=== PATIENT | female | born 1970 | race Caucasian/White ===

== ENCOUNTER → 2019-12-23 15:09 | Outpatient (CLI) | payer OTHER, SELFPAY ==
--- NOTE | ~2019-12-23 | MM_ITS ---
EXAMINATION: MM screening joe BI w polo HISTORY: Screening TECHNIQUE: Craniocaudal and mediolateral oblique 3-D tomosynthesis images were obtained and synthetic 2-D images were generated. CAD analysis was submitted and interpreted. COMPARISON: Comparison to multiple prior studies sequentially, with oldest reviewed study dated 04/25. BREAST PARENCHYMAL COMPOSITION: There are scattered areas of fibroglandular density. FINDINGS: The left breast is stable without evidence for malignancy. Slightly increased prominence of asymmetries in the upper outer quadrant of the right breast. IMPRESSION: 1. Right breast asymmetries, upper outer quadrant. 2. Additional mammographic views and possible breast ultrasound are recommended. BI-RADS Category 0: Incomplete: Needs additional imaging evaluation. Reviewed, dictated and finalized at location A. IMPRESSION: 1. Right breast asymmetries, upper outer quadrant. 2. Additional mammographic views and possible breast ultrasound are recommended . BI-RADS Category 0: Incomplete: Needs additional imaging evaluation.
== END ==
PROVIDERS: PCP Family Medicine; Visit Provider Family Medicine
DX: Z12.31 Encounter for screening mammogram for malignant neoplasm of breast (principal)
CPT/HCPCS: 77063; 77067

== ENCOUNTER → 2020-01-14 14:11 | Outpatient (CLI) | payer OTHER, SELFPAY ==
--- NOTE | ~2020-01-14 | MMUS_ITS ---
EXAMINATION: MM diagnostic mammo unilat RT, US breast RT limited HISTORY: Follow-up right breast asymmetry TECHNIQUE: Additional 3-D tomosynthesis images of the right breast were performed and synthetic 2-D i mages were generated. CAD analysis was submitted and interpreted. High resolution right breast ultras ound was performed. COMPARISON: Comparison to multiple prior studies sequentially, with oldest reviewed study dated 09/01. BREAST PARENCHYMAL COMPOSITION: Breast composed of scattered areas of fibroglandular density. FINDINGS: MAMMOGRAPHIC FINDINGS: There are irregular asymmetries in the upper outer quadrant of the right breast without discrete mass . There are no suspicious calcifications. ULTRASOUND: Limited right breast ultrasound: At 10:00, 6 cm from the nipple there is an irregular hypoechoic ill- defined mass with posterior shadowing and internal vascularity mass measures approximately 3 cm. IMPRESSION: 1. Complex irregular shaped 3 cm mass at 10:00, 6 cm from the nipple in the area of asymmetry on mamm ography. 2. Ultrasound-guided right breast biopsy recommended. BI-RADS category 4, suspicious findings. Reviewed, dictated and finalized at location A. UNITY SERVICES OFFICER IMPRESSION: 1. Complex irregular shaped 3 cm mass at 10:00, 6 cm from the nipple in the are a of asymmetry on mammography. 2. Ultrasound-guided right breast biopsy recommended. BI-RADS category 4, suspicious findings.
== END ==
PROVIDERS: PCP Family Medicine; Visit Provider Nurse Practitioner
DX: N63.11 Unspecified lump in the right breast, upper outer quadrant (principal)
CPT/HCPCS: 76642; 77065

== ENCOUNTER 2020-01-20 10:25 | Outpatient (CLI) | payer OTHER, SELFPAY ==
--- NOTE | ~2020-01-20 | US_ITS ---
EXAMINATION: US breast RT limited HISTORY: Patient presents for ultrasound guided biopsy of the right breast mass. TECHNIQUE: Limited ultrasound the upper outer quadrant of the right breast is performed: 01/14/2020 FINDINGS: With real-time ultrasound, no discrete mass is identified for targeted biopsy. This was dis cussed with the patient and a plan for six-month follow-up was decided upon. IMPRESSION: No discrete mass identified for targeted and ultrasound-guided biopsy. Would recommend follow-up diag nostic mammogram in six months with possible ultrasound to evaluate for the right breast asymmetries described on recent diagnostic mammogram. BI-RADS category 3, probably benign findings. Reviewed, dictated and finalized at location A. CHARD GRINDER OPERATOR IMPRESSION: No discrete mass identified for targeted and ultrasound-guided biopsy. Would re commend follow-up diagnostic mammogram in six months with possible ultrasound t o evaluate for the right breast asymmetries described on recent diagnostic mamm ogram. BI-RADS category 3, probably benign findings.
== END 2020-01-20 10:26 | disposition home or self-care (01) ==
LOC: ANHIMG 10:34
PROVIDERS: PCP Nurse Practitioner; Visit Provider Nurse Practitioner
DX: N63.11 Unspecified lump in the right breast, upper outer quadrant (principal)
CPT/HCPCS: 76642

== ENCOUNTER → 2020-11-18 01:21 | Outpatient (CLI) | payer OTHER, SELFPAY ==
[2020-11-18 20:24] LABS: SARS-CoV-2 RNA PCR Negative
== END ==
PROVIDERS: PCP Family Medicine; Visit Provider Family Medicine
DX: Z20.822 Contact with and (suspected) exposure to COVID-19 (principal); R05 Cough
CPT/HCPCS: C9803; U0003; U0005

== ENCOUNTER → 2021-01-28 02:27 | Outpatient (CLI) | payer OTHER, SELFPAY ==
[2021-01-28 18:39] LABS: SARS-CoV-2 RNA PCR Negative
== END ==
PROVIDERS: PCP Family Medicine; Visit Provider Nurse Practitioner
DX: Z20.822 Contact with and (suspected) exposure to COVID-19 (principal)
CPT/HCPCS: C9803; U0003; U0005

== ENCOUNTER → 2021-06-03 14:20 | Outpatient (CLI) | payer OTHER, SELFPAY ==
--- NOTE | ~2021-06-03 | MM_ITS ---
EXAMINATION: MM screening joe BI w polo HISTORY: Screening mammogram TECHNIQUE: Craniocaudal and mediolateral oblique 3-D tomosynthesis images were obtained and synthetic 2-D images were generated. CAD analysis was submitted and interpreted. COMPARISON: 01/20/2020 limited right breast ultrasound 01/14/2020 diagnostic right mammogram and limited right breast ultrasound limited right breast ultraso und 12/23/2019, 10/22/2018 bilateral screening mammogram examinations BREAST PARENCHYMAL COMPOSITION : There are scattered areas of fibroglandular density. FINDINGS: There is interval development of an approximately 3.3 x 4.2 x 4.6 cm mass with halo sign po steriorly in the lower inner quadrant of the left targeted left breast ultrasound examination are rec ommended. Biopsy marker is noted on the left; history of prior benign left breast biopsy. No suspicious mass, architectural distortion, malignant calcification, skin thickening or retraction is noted otherwise. IMPRESSION: 1. 4.6 cm circumscribed mass with halo sign, posterior lower inner left breast 2. Targeted left breast ultrasound examination is recommended BI-RADS Category 0: Incomplete: Needs additional imaging evaluation. Reviewed, dictated and finalized at location A.
== END ==
PROVIDERS: PCP Nurse Practitioner Family; Visit Provider Nurse Practitioner Family
DX: Z12.31 Encounter for screening mammogram for malignant neoplasm of breast (principal); R92.8 Other abnormal and inconclusive findings on diagnostic imaging of breast
CPT/HCPCS: 77063; 77067

== ENCOUNTER → 2021-06-15 14:20 | Outpatient (CLI) | payer OTHER, SELFPAY ==
--- NOTE | ~2021-06-15 | US_ITS ---
US breast LT limited 06/15/2021 14:39 Indication: Follow-up left breast mass seen on recent examination Procedure: High-resolution Limited ultrasound of the left breast Comparison: Mammogram dated 06/03/2021 Findings: At 9:00, 10 cm from the nipple there is a lobulated hypoechoic mass with posterior acoustic enhancement. There is internal vascularity. The mass measures 4.8 x 3.3 x 3.8 cm. Impression: 1: New hypoechoic lobulated vascular mass at 9:00, 10 cm from the nipple with internal vascularity me asuring 4.8 cm maximum dimension. BI-RADS CATEGORY 4-SUSPICIOUS ABNORMALITY RECOMMENDATION: Ultrasound guided left breast biopsy recommended. Reviewed, dictated and finalized at location A. Impression: 1: New hypoechoic lobulated vascular mass at 9:00, 10 cm from the nipple with i nternal vascularity measuring 4.8 cm maximum dimension. BI-RADS CATEGORY 4-SUSPICIOUS ABNORMALITY RECOMMENDATION: Ultrasound guided left breast biopsy recommended.
== END ==
PROVIDERS: PCP Nurse Practitioner Family; Visit Provider Nurse Practitioner
DX: R92.8 Other abnormal and inconclusive findings on diagnostic imaging of breast (principal)
CPT/HCPCS: 76642

== ENCOUNTER 2021-06-25 09:24 | Outpatient (CLI) | payer OTHER, SELFPAY ==
--- NOTE | ~2021-06-25 | MMUS_ITS ---
US breast biopsy LT w image, MM post biopsy invasive LT EXAMINATION: US GUIDED NEEDLE BIOPSY WITH VAC UUM ASSISTANCE DATE: 06/25/2021 10:47 CDT INDICATION: Left breast mass seen on recent examination. Ultrasound-guided core biopsy is requested to evaluate for malignancy. TECHNIQUE AND FINDINGS: The risks and potential benefits of the procedure were discussed with the patient, and written inform ed consent was obtained. After sterile preparation of the left breast, 1% lidocaine was utilized for local anesthesia. 1% lidocaine with epinephrine was used for deep anesthesia. A 10G vacuum-assisted biopsy gun needle was advanced through to the outer edge of the region of inter est from a medial approach utilizing sonographic guidance. A total of 6 tissue core samples were obt ained through the lesion. An Inrad tissue marker clip was then placed at the biopsy site. Hemostasis was achieved. The patient tolerated procedure well and there was no evidence of immediate complication. The patien t was given verbal instructions partly is from the department. Left breast mammograms to document ti ssue marker clip placement. The tissue samples were submitted to surgical pathology for histologic an alysis. IMPRESSION: 1. Successful ultrasound-guided vacuum-assisted biopsy of left breast mass with tissue marker placem ent. Please refer to pathology report for histologic analysis. Reviewed, dictated and finalized at location A. IMPRESSION: 1. Successful ultrasound-guided vacuum-assisted biopsy of left breast mass wit h tissue marker placement. Please refer to pathology report for histologic anal ysis.
== END 2021-06-25 09:25 | disposition home or self-care (01) ==
PROVIDERS: PCP Nurse Practitioner Family; Visit Provider Nurse Practitioner
DX: R92.8 Other abnormal and inconclusive findings on diagnostic imaging of breast (principal); C50.912 Malignant neoplasm of unspecified site of left female breast
CPT/HCPCS: 19083; 88305; 88342; 88360; A4648

== ENCOUNTER 2022-08-29 13:42 | Outpatient (CLI) | payer OTHER, SELFPAY ==
[2022-08-29 14:58] LABS: Strep Group A RT-PCR NOT DETECTED (Negative)
== END 2022-08-29 13:43 | disposition home or self-care (01) ==
LOC: ANHLAB 13:44
PROVIDERS: PCP Nurse Practitioner Family; Visit Provider Family Medicine
DX: J02.9 Acute pharyngitis, unspecified (principal)
CPT/HCPCS: 87651

== ENCOUNTER 2023-02-17 08:13 | Outpatient (CLI) | payer OTHER, SELFPAY ==
[2023-02-17 12:43] LABS: Basophils Percent Auto 0.4 % (0.2-1.2); Eosinophils Absolute Auto 0.2 K/mm3 (0-0.3); Eosinophils Percent Auto 2.9 % (0-4.4); Hematocrit 37.1 % (37.0-47.0); Hemoglobin 10.9 g/dL (12.0-15.0); Immature Granulocyte Absolute 0.01 K/mm3 (0.00-0.031); Immature Granulocyte Percent A 0.1 % (0-0.5); Lymphocytes Absolute Auto 1.95 K/mm3 (0.9-3.2); Lymphocytes Percent Auto 26.7 % (18.3-44.2); Mean Corpuscular HGB Conc 29.4 g/dl (32-36); Mean Corpuscular Hemoglobin 23.9 pg (26-34); Mean Corpuscular Volume 81.4 fl (80-100); Mean Platelet Volume 9.8 fl (7.4-10.4); Monocytes Absolute Auto 0.4 K/mm3 (0.1-0.6); Monocytes Percent Auto 5.6 % (2.6-8.5); Neutrophils Absolute Auto 4.7 K/mm3 (1.3-6.7); Neutrophils Percent Auto 64.3 % (45.5-73.1); Platelet Count Result 371 k/mm3 (150-375); Red Blood Count 4.56 M/mm3 (4.2-5.4); Red Cell Distribution Width 17.7 % (11.5-14.5); White Blood Count 7.3 K/mm3 (4.5-10.0)
[2023-02-17 12:55] LABS: Alanine Aminotransferase 39 U/L (6-35); Alkaline Phosphatase 85 U/L (38-126); Anion Gap 7 mmol/L (8-16); Aspartate Amino Transferase 50 U/L (14-36); Bilirubin,Total 0.7 mg/dL (0.2-1.3); Blood Urea Nitrogen 14 mg/dL (7-17); Calcium 8.9 mg/dL (8.4-10.2); Carbon Dioxide 30 mmol/L (22-30); Chloride 102 mmol/L (98-107); Cholesterol 138 mg/dL (0-200); Estimated Glomerular Filt Rate > 60; Glucose 75 mg/dL (65-110); HDL Direct 37 mg/dL; Sodium 139 mmol/L (137-145); Triglycerides 51 mg/dL (<150)
[2023-02-17 13:07] LABS: LDL Cholesterol Direct 78 mg/dL
[2023-02-17 13:34] LABS: Hemoglobin A1C 5.8 % (<5.7)
[2023-02-21 15:53] LABS: Vitamin D 1,25 (OH)2 Total 31 pg/mL (18-72); Vitamin D2 1,25 (OH)2 <8 pg/mL; Vitamin D3 1,25 (OH)2 31 pg/mL
== END 2023-02-17 08:14 | disposition home or self-care (01) ==
LOC: ANHGOSHLAB 08:14
PROVIDERS: PCP Family Medicine; Visit Provider Nurse Practitioner Family
DX: Z00.00 Encounter for general adult medical examination without abnormal findings (principal); I10 Essential (primary) hypertension; E55.9 Vitamin D deficiency, unspecified; E66.01 Morbid (severe) obesity due to excess calories; Z68.43 Body mass index [BMI] 50.0-59.9, adult
CPT/HCPCS: 36415; 80053; 80061; 82652; 83036; 84443; 85025

== ENCOUNTER 2024-02-28 08:00 | Outpatient (CLI) | payer OTHER, SELFPAY ==
[2024-02-28 19:23] LABS: Alanine Aminotransferase 23 U/L (6-35); Albumin Level 3.7 g/dL (3.5-5.1); Alkaline Phosphatase 98 U/L (38-126); Anion Gap 4 mmol/L (4-12); Aspartate Amino Transferase 45 U/L (14-36); Bilirubin,Total 1.6 mg/dL (0.2-1.3); Blood Urea Nitrogen 9 mg/dL (7-17); Calcium 8.8 mg/dL (8.4-10.2); Carbon Dioxide 33 mmol/L (22-30); Chloride 101 mmol/L (98-107); Cholesterol 159 mg/dL (0-200); Estimated Glomerular Filt Rate > 60; Glucose 87 mg/dL (65-110); HDL Direct 49 mg/dL; Potassium 3.5 mmol/L (3.4-5.0); Sodium 138 mmol/L (137-145); Triglycerides 84 mg/dL (<150)
[2024-02-28 19:33] LABS: Hemoglobin A1C 5.9 % (<5.7); LDL Cholesterol Direct 71 mg/dL
== END 2024-02-28 08:01 | disposition home or self-care (01) ==
LOC: ANHGOSHLAB 08:01
PROVIDERS: PCP Nurse Practitioner Family; Visit Provider Nurse Practitioner Family
DX: Z00.00 Encounter for general adult medical examination without abnormal findings (principal); R73.03 Prediabetes; I10 Essential (primary) hypertension; E55.9 Vitamin D deficiency, unspecified
CPT/HCPCS: 36415; 80053; 80061; 82306; 83036; 84443

== ENCOUNTER 2024-10-04 08:06 | Outpatient (CLI) | payer OTHER, SELFPAY ==
--- OUTSIDE RECORDS SUMMARY | 2024-10-04 08:09 | XMS_ITS | Clinical Summary ---
Author Organization [facility] Address [address] [place] [address] Care Team Providers Care Torch Cutter Name Role Phone Bisi Looney MD Unavailable [phone] Shona Justice MD Unavailable [phone] Janak Holland MD Unavailable [phone] Airam Boykin NP Primary Care Provider [phone] Anamika Pepe MD Unavailable [phone] Gregorio Kirk MD Unavailable Allergies Active Allergy Reactions Criticality Noted Date Comments Paclitaxel Shortness of breath,Anxiety,Other (See comments),Chest tightness,Flushing (skin),Nausea only High 08/20/2021 Back pain Start at half rate and titrate to full rate after 15 min if tolerated Medications lisinopriL (PRINIVIL,ZESTRIL ) 40 mg tabletIndications :hypertension Take 1 tablet (40 mg total) by mouth every morning Active amLODIPine (NORVASC) 5 mg tabletIndications :hypertension Take 1 tablet (5 mg total) by mouth nightly Active albuterol HFA (PROVENTIL HFA,VENTOLIN HFA,PROAIR HFA) 90 mcg/actuation inhalerIndication s:Acute Asthma Attack Inhale 2 puffs every 6 (six) hours as needed for wheezing or shortness of breath Active glucosamine sulfate 500 mg tabletIndications :supplement Take 1 tablet by mouth nightly Active multivitamin capsuleIndication s:Vitamin Deficiency Prevention Take 1 capsule by mouth nightly Active lidocaine-priloca ine (EMLA) creamIndications: Administration of Local Anesthesia Apply topically as needed for pain 30 g 2 2 Active loratadine (CLARITIN) 10 mg tablet Take 1 tablet (10 mg total) by mouth daily as needed for allergies Active acetaminophen (TYLENOL) 500 mg tablet Take 2 tablets (1,000 mg total) by mouth every 6 (six) hours as needed for pain Every 8 hrs Active bismuth subsalicylate (PEPTO-BISMOL) suspension Take 30 mL by mouth every 6 (six) hours as needed for indigestion or heartburn Active fluticasone propionate (FLONASE) 50 mcg/actuation nasal spray Administer 2 sprays into each nostril as needed for rhinitis Active oxyBUTYnin XL (DITROPAN-XL) 10 mg 24 hr tablet 3 Active ibuprofen 200 mg tab/cap Take by mouth every 6 (six) hours as needed for pain Active sodium, potassium & mag sulfates (SUPREP BOWEL KIT) 17.5-3.13-1.6 gram recon soln 4 Active Active Problems Problem Noted Date Diagnosed Date Malignant neoplasm of left female breast 023 Personal history of radiation therapy 08/16/2022 Persons encountering health services in other specified circumstances 08/10/2021 Malignant neoplasm of lower- inner quadrant of left breast in female, estrogen receptor negative 07/29/2021 Cancer Staging:Clinical:Stage IIIB(cT3, cN0, cM0, G3, ER-, GA-, HER2-) - Unsigned Immunizations Immunization Administration Dates Next Due Moderna SARS-CoV-2 Monovalen t Vaccination (12+ YRS) 08/07/2021,01/04/2021,05/30/2020,2020 Surgical History Surgery Date Site/Laterality Comments BREAST BIOPSY 06/11/2021 - 07/10/2021 Left IDC; with markers; ASD REPAIR 05/12/2007 - 06/11/2007 post stroke in 2007; umbrella surgery SECTION 03/13/2005 - 03/12/2006 BREAST BIOPSY 03/13/2016 - 03/12/2017 Right with marker placment BLADDER SURGERY 03/13/1974 - 03/12/1975 MASS EXCISION 03/13/1973 - 03/12/1974 in nose as ESOPHAGOGASTRODUODENOSCOPY 03/13/2007 - 03/12/2008 US GUIDED BIOPSY LYMPH NODE SUPERFICIAL LEFT 08/05/2021 N/A PORTACATH PLACEMENT 08/12/2021 Right BREAST LUMPECTOMY 03/28/2022 Left BREAST BIOPSY 10/13/2022 Left Medical History Medical History Date Comments Hypertension Stroke (HCC) Asthma Sleep apnea GERD (gastroesophageal reflux disease) BMI 40.0-44.9, adult (HCC) Anxiety Breast cancer (HCC) Family History Medical History Relation Name Comments Stomach cancer Maternal Grandfather Breast cancer Mother Prostate cancer Mother's Brother Breast cancer Mother's Sister 1 Brain cancer Mother's Sister 2 Anesthesia problems Other Colon cancer Paternal Grandfather Relation Name Status Comments Maternal Grandfather Mother Alive Mother's Brother Mother's Sister 1 Mother's Sister 2 Other Paternal Grandfather Social History Tobacco Use Types Packs/Day Years Used Date Smoking Tobacco: Never Smokeless Tobacco: Never Tobacco Cessation:Counseling Given: Not Answered AUDIT-C Answer Date Recorded Q1: How often do you have a drink containing alc ohol? Monthly or less 12/02/2022 Q2: How many drinks containi ng alcohol do you have on a typical day when you are drinking? 1 or 2 12/02/2022 Q3: How often do you have si x or more drinks on one occasion? Never 12/02/2022 Personal Safety Answer Date Recorded Have you ever been in or are you currently in a harmful physical or emotional relationship or is someone making you feel afraid or unsafe? Denies 12/12/2022 Comments No Sex and Gender Information Value Date Recorded Sex Assigned at Not on file Legal Sex Female 1:58 AM SUPERVISOR COFFEE Gender Identity Not on file Sexual Orientation Not on file Obstetrics History Last Filed Vital Signs Vital Sign Reading Time Taken Comments Blood Pressure 149/85 04/03/2024 9:38 AM SUPERVISOR COFFEE Pulse 88 04/03/2024 9:38 AM SUPERVISOR COFFEE Temperature 36.3 C (97.4 F) 03/17/2023 12:18 PM SUPERVISOR COFFEE Respiratory Rate 18 03/17/2023 12:18 PM SUPERVISOR COFFEE Oxygen Saturation 100% 04/03/2024 9:38 AM SUPERVISOR COFFEE Inhaled Oxygen Concentration - - Weight 155.6 kg (343 lb) 04/03/2024 9:38 AM SUPERVISOR COFFEE Height 180.3 cm (5' 10.98) 09/29/2023 9:42 AM C DT Body Mass Index 47.86 09/29/2023 9:42 AM CDT Plan of Treatment Health Maintenance Due Date Last Done Comments Cervical Cancer Screening 1970 Colon Cancer Screening-Colonoscopy 1970 Depression Screening 1970 Hepatitis C Screening 1970 DTaP/Tdap/Td Vaccine (1 - Tdap) 1981 Hepatitis B Screening 1988 Regular Well Visit/Exam 18-64 1988 Zoster Vaccine (1 of 2) 2020 Covid-19 Vaccine ( season) 2023 08/07/2021, 01/04/2021, 05/30/2020, Additional history exists Breast Cancer Screening-Mammogram 09/28/2024 09/29/2023, 09/23/2022 Influenza Vaccine (#1) 2024 , 02/10/2023, 03/01/2022, Additional history exists Pneumococcal vaccine <65 Aged Out No longer eligible based on patient's age to complete this topic Medical Devices Implanted Type Area Launch Check Out Device Identifier Shelf Expiration Date Model / Serial / Lot Other - See Comments Implanted:Qty: 1 Other - see comments N/A: Heart Description:ACD repair- ioana ent carries card with her- surgery 05/2007 [employer] Magseed 18ga 7cm Marker Breast Biopsy [id number] - [id number] Implanted:Qty: 1 on 03/28/2022 at [facility] Left: Breast [employer] [id number] 01/10/2026 [id number] [employer] Ligaclip Extra 3.2mm Ligate Open Medium Clip Internal Titanium Latex Free Lt200 - [id number] Implanted:Qty: 1 on 03/28/2022 by Shona Justice MD at [facility] [employer] [id number] 11/10/2026 [id number] / / [id number] [employer] Ligaclip Extra 3.2mm Ligate Open Medium Clip Internal Titanium Latex Free Lt200 - [id number] Implanted:Qty: 1 on 03/28/2022 by Shona Justice MD at [facility] [employer] [id number] 11/10/2026 [id number] / / [id number] [employer] Partnership Eviva 13cm Identifier Biopsy Site Wwrby-Vzytd-49 - [id number] Implanted:Qty: 1 on 10/13/2022 at [facility] [employer] [id number] 03/01/2023 [facility]-EV DANIEL-13 / / [id number] Explanted Type Area Launch Check Out Device Identifier Shelf Expiration Date Model / Serial / Lot [employer] Peripheral [employer] Powerport Clearvue Airguard 8fr 1 Lumen Lightweight Intermediate Latex Free [id number] - [id number] Implanted:Qty: 1 on 08/12/2021 by Shona Justice MD at [facility] Explanted:Qty: 1 on 12/12/2022 by Shona Justice MD at [facility] Right: Chest [employer] [id number] 06/10/2022 [id number] / / [id number] Description:Disposed of per hospital policy Procedures Procedure Name Priority Date/Time Associated Diagnosis Comments DIAGNOSTIC MAMMOGRAM BILATERAL W MAGDY Schedule Routine, Read Routine (OP Routine) 09/29/2023 10:28 AM CDT Malignant neoplasm of lower-inner quadrant of left breast in female, estrogen receptor negative (HCC) Invasive ductal carcinoma of breast, female, left (HCC) from Last 3 Months or Most Recently Relevant to Health Maintenance Results * Diagnostic Mammogram Bilateral W Magdy (09/29/2023 10:28 AM CDT) Anatomical Region Laterality Modality Breast Bilateral Mammography 09/29/2023 1:08 PM CDT Impressions 09/29/2023 1:08 PM CDT No mammographic evidence of malignancy. OVERALL FINAL ASSESSMENT: BI-RADS Category 2: Benign. RECOMMENDATION: Annual diagnostic mammography is recommended. Electronically signed by: Kristie Burgos M.D. Narrative 09/29/2023 1:08 PM CDT EXAMINATION: BILATERAL DIGITAL DIAGNOSTIC MAMMOGRAM INCLUDING CAD AND BILATERAL DIGITAL BREAST TOMOSYNTHESIS HISTORY: 53-year-old female with breast conservation therapy for LEFT breast invasive ductal cancer treated in 2021 with history of benign LEFT breast biopsy of calcification in 2022. COMPARISON: Multiple priors, most recently 10/13/2022 and dating back to 12/23/2019 TECHNIQUE: Full field digital mammographic views of BOTH breasts were performed, including computer aided detection (CAD) and BILATERAL digital breast tomosynthesis (DBT). BREAST PARENCHYMAL COMPOSITION: There are scattered areas of fibroglandular density. MAMMOGRAM FINDINGS: There is no new suspicious abnormality within EITHER breast; the appearance of BOTH breasts is stable compared to prior exams. Treatment changes are again noted within the LEFT breast. Procedure Note Kristie Burgos MD - 09/29/2023 EXAMINATION: BILATERAL DIGITAL DIAGNOSTIC MAMMOGRAM INCLUDING CAD AND BILATERAL DIGITAL BREAST TOMOSYNTHESIS HISTORY: 53-year-old female with breast conservation therapy for LEFT breast invasive ductal cancer treated in 2021 with history of benign LEFT breast biopsy of calcification in 2022. COMPARISON: Multiple priors, most recently 10/13/2022 and dating back to 12/23/2019 TECHNIQUE: Full field digital mammographic views of BOTH breasts were performed, including computer aided detection (CAD) and BILATERAL digital breast tomosynthesis (DBT). BREAST PARENCHYMAL COMPOSITION: There are scattered areas of fibroglandular density. MAMMOGRAM FINDINGS: There is no new suspicious abnormality within EITHER breast; the appearance of BOTH breasts is stable compared to prior exams. Treatment changes are again noted within the LEFT breast. IMPRESSION: No mammographic evidence of malignancy. OVERALL FINAL ASSESSMENT: BI-RADS Category 2: Benign. RECOMMENDATION: Annual diagnostic mammography is recommended. Electronically signed by: Kristie Burgos M.D. Shona Justice MD IMG MAMMO PROCEDURES Fi nal Result from Last 3 Months or Most Recently Relevant to Health Maintenance Insurance [facility] CHO[facility] PL[facility] Care Teams Torch Cutter Relationship Specialty Start Date End Date Airam Boykin NP [address] [place] [address] PCP - General Nurse Practitioner 03/17/23 Bisi Looney MD [address] [facility] [address] [place] [address] Medical Oncologist/Curtain Roller Assembler Medical Oncology 10/22/21 Shona Justice MD [address] [place] [address] Surgeon Surgical Oncology 06/01/22 Janak Holland MD [address] [place] [address] Referring Physician Obstetrics and Gynecology 03/17/23 Anamika Pepe MD [address] [id number] Radiation Oncologist Radiation Oncology 11/08/23 Gregorio Kirk MD [address] [place] [address] [address] [facility] [address] [place], [place] [id number] Medical Oncologist Hematology 03/07/24
--- OUTSIDE RECORDS SUMMARY | 2024-10-04 08:09 | XMS_ITS | Encounter Summary ---
Author Organization [facility] Address [address] [place] [address] Care Team Providers Care Shellfish Harvester Name Role Phone Unavailable Primary Care Provider Unavailabl e Reason for Visit * Diagnostic Imaging (Routine) - Closed Specialty Diagnoses / Procedures Referred By Contac t Referred To Contact Procedures Breast [place] [address] [place] [id number] Phone: tel: fax: Referral ID Status Reason Start Date Expiration Date Visits Re quested Visits Authorized [id number] Closed 07/20/2021 08/19/2022 1 1 Encounter Details Date Type Department Care Team (Late st Contact Info) Description 01/14/2020 12:05 AM AIRPORT GUIDE Hospital Encounter [facility] [address] [place], [place] [id number] Social History Tobacco Use Types Packs/Day Years Used Date Smoking Tobacco: Never Smokeless Tobacco: Never AUDIT-C Answer Date Recorded Q1: How often [...] on file Legal Sex Female 1:58 AM AIRPORT GUIDE Gender Identity Not on file Sexual Orientation Not on file documented as of this encounter Functional Status * Audit-C Score Answer Date of Assessment Author 1 12/02/2022 8:56 AM CHRISTENT Amie Hunter RN * Question Answer Date of Assessment Author Q1: How often do you have a drink containing alcohol? Monthly or less 12/02/2022 8:56 AM CHRISTENT Leena Hunter RN Q2: How many drinks containing alcohol do you have on a typical day when you are drinking? 1 or 2 12/02/2022 8:56 AM CHRISTENT Leena Hunter RN Q3: How often do you have six or more drinks on one occasion? Never 12/02/2022 8:56 AM CHRISTENT Leena Hunter RN documented as of this encounter Plan of Treatment Not on file documented as of this encounter Procedures Procedure Name Priority Date/Time Associated Diagnosis Comments BREAST IMAGING US OUTSIDE REFERENCE Routine 01/14/2020 12:05 AM AIRPORT GUIDE documented in this encounter Results * Breast Imaging US Outside Reference (01/14/2020 12:05 AM AIRPORT GUIDE) Impressions RAD_MAMMO_[facility] - 07/20/2021 10:55 AM CDT These images are for Reference purposes only and have not been reviewed by [facility] Radiology. There will be no report generated by a [facility] Radiologist. Narrative RAD_MAMMO_[facility] - 07/20/2021 10:55 AM CDT EXAMINATION: Images For Reference Purposes Only us Shona Justice MD IMG MAMMO PROCEDURES Fi nal Result RAD_MAMMO_[facility] documented in this encounter Visit Diagnoses Not on filedocumented in this encounter
--- OUTSIDE RECORDS SUMMARY | 2024-10-04 08:09 | XMS_ITS | Clinical Summary ---
Author Organization [facility] Address [address] [place] [address] Care Team Providers Care Keg Raiser Name Role Phone Sophia Aguillon RECEPTIONIST NURSE Primary Care Provider [phone] Allergies Active Allergy Reactions Criticality Noted Date Comments Paclitaxel (Protein-Bound) Anxiety,Chest pressure,Rash,Nausea Only,Other (see comment),Shortness of Breath High 08/20/2021 Back pain Start at half rate and titrate to full rate after 15 min if tolerated Medications amLODIPine (NORVASC) 5 MG tablet Take 1 tablet (5 mg total) by mouth nightly. Active oxybutynin XL (DITROPAN-XL) 10 MG 24 hr tablet Take 1 tablet (10 mg total) by mouth nightly. 3 Active albuterol sulfate HFA 108 (90 Base) MCG/ACT inhaler Inhale 2 puffs into the lungs. Active lisinopril (PRINIVIL) 40 MG tablet Take 1 tablet (40 mg total) by mouth daily. Active loratadine (CLARITIN) 10 MG tablet Take 1 tablet (10 mg total) by mouth daily as needed. Active fluticasone propionate (FLONASE) 50 MCG/ACT nasal spray 2 sprays by Nasal route daily as needed. Active capecitabine (XELODA) 500 MG tablet Take 5 tablets by mouth 2 (two) times a day. TAKE 5 TABLETS TWICE DAILY ON DAYS 1-14 OF EACH 21 DAY TREATMENT CYCLE. TAKE WITH FOOD. SWALLOW TABLETS WHOLE. Active magnesium oxide (MAG-OX) 400 (240 Mg) MG tablet Take 1 tablet (400 mg total) by mouth daily. Active ondansetron (ZOFRAN) 4 MG tablet Take 1 tablet (4 mg total) by mouth every 6 (six) hours as needed for Nausea. Active prochlorperazin e (COMPAZINE) 10 MG tablet Take 1 tablet (10 mg total) by mouth 4 (four) times daily as needed (NAUSEA). Active Active Problems Problem Noted Date Diagnosed Date Colon cancer ([facility]) 10/30/2023 Gastroesophageal reflux dise ase, unspecified whether esophagitis present 08/09/2023 Dysphagia, unspecified type 08/09/2023 Cancer ([facility]) Resolved Problems Problem Noted Date Diagnosed Date Resolved Date Encounter for screening colonoscopy 08/09/2023 08/14/2023 Encounter for screening colonoscopy 08/09/2023 08/28/2023 Encounter for screening colonoscopy 08/09/2023 09/04/2023 Encounter for screening colonoscopy 08/09/2023 09/11/2023 Encounters Date Type Department Care Team Description 09/03/2024 Scan [facility] Scanned, Doc [facility] from Last 3 Months Family History Medical History Relation Comments Diabetes Father Heart Disease Father Hypertension Father Cancer Maternal Grandfather Stroke Maternal Grandfather Cancer Mother Diabetes Mother Hypertension Mother Colon Cancer Paternal Grandfather Heart Disease Paternal Grandfather Stroke Paternal Grandfather Alzheimer's disease Paternal Grandmother Relation Status Comments Father Maternal Grandfather Mother Alive Paternal Grandfather Paternal Grandmother Social History Tobacco Use Types Packs/Day Years Used Date Smoking Tobacco: Never Smokeless Tobacco: Never Tobacco Cessation:Counseling Given: No Alcohol Use Standard Drinks/Week Comments Not Currently 0 (1 standard drink = 0.6 oz pur e alcohol) [facility] Utilities Answer Date Recorded In the past 12 months has [facility], [facility], or water [employer] threatened to shut off services in your home? No 10/30/2023 Humiliation, Afraid, Rape, and Kick questionnair e Answer Date Recorded Within the last year, have y ou been afraid of your partner or ex-partner? No 10/30/2023 Within the last year, have y ou been humiliated or emotionally abused in other ways by your partner or ex-partner? No Within the last year, have y ou been kicked, hit, slapped, or otherwise physically hurt by your partner or ex-partner? No 10/30/2023 Within the last year, have y ou been raped or forced to have any kind of sexual activity by your partner or ex-partner? No 10/30/2023 Overall Financial Resource Strain (CARDIA) Answe r Date Recorded How hard is it for you to pa y for the very basics like food, housing, medical care, and heating? Not hard at all 10/30/2023 PHQ-2 Answer Date Recorded Patient Health Questionnaire-2 Score 0 08/09/2023 Hunger Vital Sign Answer Date Recorded Within the past 12 months, y ou worried that your food would run out before you got the money to buy more. Never true 10/30/19 24 Within the past 12 months, t he food you bought just didn't last and you didn't have money to get more. Never true 10/30/2023 PRAPARE - Transportation Answer Date Re corded In the past 12 months, has l ack of transportation kept you from medical appointments or from getting medications? No 10/11 In the past 12 months, has l ack of transportation kept you from meetings, work, or from getting things needed for daily living? No 10/30/2023 Housing Stability Vital Sign Answer Rubio e Recorded In the last 12 months, was t here a time when you were not able to pay the mortgage or rent on time? No 10/30/2023 In the past 12 months, how m any times have you moved where you were living? 0 10/30/2023 At any time in the past 12 m [facility], were you homeless or living in a fpc (including now)? No 10/30/2023 Comments No Sex and Gender Information Value Date Recorded Sex Assigned at Female 03/27/2024 8:37 AM CLEARING INSPECTOR Legal Sex Female 6:21 PM CLEARING INSPECTOR Gender Identity Not on file Sexual Orientation Not on file Last Filed Vital Signs Vital Sign Reading Time Taken Comments Blood Pressure 160/98 01/03/2024 1:13 PM CDT Pulse 88 01/03/2024 1:13 PM CDT Temperature 37.1 C (98.7 F) 01/03/2024 9:45 AM CDT Respiratory Rate 18 01/03/2024 1:13 PM CDT Oxygen Saturation 96% 01/03/2024 1:13 PM CDT Inhaled Oxygen Concentration - - Weight 153.1 kg (337 lb 8.4 oz) 01/03/2024 9:45 AM CDT Height 180.3 cm (5' 10.98) 01/03/2024 9:45 AM C DT Body Mass Index 47.1 01/03/2024 9:45 AM CDT Plan of Treatment Upcoming Encounters Date Type Department Care Team (Late st Contact Info) Description 10/07/2024 8:[address] [address] [place] [address] Linda Jordan, SALLY [address] [facility], [address] [place] [address] 10/17/2024 7:30 AM CDT Hospital Encounter [facility] [place] [address] Chana Lee MD [address] [place] [address] [place] [address] 10/17/2024 7:30 AM CDT - 10/17/2024 8:00 AM CDT Surgery [facility] [address] Chana Lee MD [address] [place] [address] [place] [address] COLONOSCOPY Scheduled Procedures Name Priority Associated Diagnoses Date/Ti me COLONOSCOPY Hx of colon CA 10/17/2024 7:30 AM CDT Health Maintenance Due Date Last Done Comments Cervical Cancer Screening Pap Smear (Age 30 to 64) Every 3 Years 1970 Annual Physical 1973 Hepatitis C 1988 DTaP, Tdap and Td Vaccines (1 - Tdap) 1989 Hepatitis B Vaccines (1 of 3 - 19+ 3-dose series) 1989 Cervical Cancer Screening Pap with HPV Testing (Age 30 to 64) Every 5 Years 2000 Cervical Cancer Screening with HPV 2000 Pneumococcal Vaccine: 50+ Years (1 of 1 - PCV) 2020 Zoster Vaccines (1 of 2) 2020 COVID-19 Vaccine ( - season) 2023 08/07/2021, 01/04/2021, 05/30/2020, Additional history exists PHQ-2 (Physician [place]) 03/13/2024 08/09/2023 Mammogram Screening 09/28/2025 09/29/2023, 09/23/2022, 11/09/2021 Colorectal Cancer Screening Colonoscopy (10 Years) Discontinued 10/09/2023, 10/09/2023, 09/06/2023 Meningococcal B Vaccine Aged Out No l onger eligible based on patient's age to complete this topic Meningococcal Vaccine Aged Out No austin elvia eligible based on patient's age to complete this topic RSV Immunizations Under 20 Months Aged Out No longer eligible based on patient's age to complete this topic Goals Goal Patient Goal Type Associated Problems Recent Progress Patient-Stated? Author Family - family caregiver with be involved in care transitions and discharge planning Lifestyle No Jimbo Macdonald RN Autogenerated Goal Care Plan Autogenerated Problem No Krysta Cruz RN Medical Devices Implanted Type Area Brand Ambassador Promotional Model Device Identifier Shelf Expiration Date Model / Serial / Lot Plug-09/10/2007 Implanted:2007 by Sandoval Connelly MD (Quantity not on file) Description:Plug in heart. Product family -Cribriform Procedures Procedure Name Priority Date/Time Associated Diagnosis Comments COLONOSCOPY Routine 10/09/2023 10:58 AM CDT from Last 3 Months or Most Recently Relevant to Health Maintenance Additional Health Concerns Active Problems Noted Date Diagnosed Date Autogenerated Problem 06/26/2024 Insurance [facility] Care Teams Keg Raiser Relationship Specialty Start Date End Date Sophia Aguillon FNP PCP - General Nurse Practitioner Family 02/26/21
--- OUTSIDE RECORDS SUMMARY | 2024-10-04 08:09 | XMS_ITS | Encounter Summary ---
Author Organization [facility] Address [address] [place] [address] Phone Care Team Providers Care Administrative Specialist Name Role Phone Sophia Aguillon NP Primary Care Provider [phone] Bisi Looney MD Unavailable [phone] Anamika Pepe MD Unavailable [phone] Shona Justice MD Unavailable [phone] Janak Holland MD Unavailable [phone] Airam Boykin NP Primary Care Provider [phone] Anamika Pepe MD Unavailable [phone] Gregorio Kirk MD Unavailable Encounter Details Date Type Department Care Team (Latest Contact Info) Description 09/03/2021 Orders Only [facility] Scanning, Provider Social History Tobacco Use Types Packs/Day Years Used Date Smoking Tobacco: Never Smokeless Tobacco: Never AUDIT-C Answer Date Recorded Q1: How often do you have a drink containing alc ohol? Never 08/12/2021 Q2: How many drinks containi ng alcohol do you have on a typical day when you are drinking? 1 or 2 08/12/2021 Q3: How often do you have six or more drinks on one occasion? 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 Gender Identity Not on file Sexual Orientation Not on file documented as of this encounter Plan of Treatment Not on file documented as of this encounter Procedures Procedure Name Priority Date/Time Associated Diagnosis Comments SCAN - LABS 09/03/2021 documented in this encounter Results * SCAN - LABS (09/03/2021) us Provider Scanning Final Result documented in this encounter Visit Diagnoses Not on filedocumented in this encounter Care Teams Administrative Specialist Relationship Specialty Start Date End Date Sophia Aguillon NP PCP - General Family Medicine 06/30/21 03/16/23 Airam Boykin NP [address] [place] [address] PCP - General Nurse Practitioner 03/17/23 Bisi Looney MD [address] [facility] [address] [place] [address] Medical Oncologist/Manual Machinist Medical Oncology 10/22/21 Anamika Pepe MD [address] [facility] [address] [place] [address] Radiation Oncologist Radiation Oncology 06/01/22 Shona Justice MD [address] [place] [address] Surgeon Surgical Oncology 06/01/22 Janak Holland MD [address] [place] [address] Referring Physician Obstetrics and Gynecology 03/17/23 Anamika Pepe MD [address] [address] Radiation Oncologist Radiation Oncology 11/08/23 Gregorio Kirk MD [address] [place], [place] [id number] Medical Oncologist Hematology 03/07/24 documented as of this encounter
--- OUTSIDE RECORDS SUMMARY | 2024-10-04 08:09 | XMS_ITS | Encounter Summary ---
Author Organization [facility] Healthcare Address [address] [place] [address] Care Team Providers Care Furniture Assembler And Installer Name Role Phone Unavailable Primary Care Provider Unavailabl e Reason for Visit * Diagnostic Imaging (Routine) - Closed Specialty Diagnoses / Procedures Referred By Contac t Referred To Contact Procedures Breast [place] [address] [place] [address] Phone: tel: fax: Referral ID Status Reason Start Date Expiration Date Visits Re quested Visits Authorized [id number] Closed 07/20/2021 08/19/2022 1 1 Encounter Details Date Type Department Care Team (Late st Contact Info) Description 05/13/2016 12:05 AM SOFTWARE ASSET MANAGEMENT ANALYST Hospital Encounter [facility] [address] [place], [place] [id number] Social History Tobacco Use Types Packs/Day Years [...] on file Legal Sex Female 1:58 AM SOFTWARE ASSET MANAGEMENT ANALYST Gender Identity Not on file Sexual Orientation [...] Comments BREAST IMAGING US OUTSIDE REFERENCE Routine 05/13/2016 12:05 AM SOFTWARE ASSET MANAGEMENT ANALYST documented in this encounter Results * Breast Imaging US Outside Reference (05/13/2016 12:05 AM SOFTWARE ASSET MANAGEMENT ANALYST) Impressions RAD_MAMMO_BJ - 07/20/2021 10:54 AM CDT These images are for Reference purposes only and have not been reviewed by [facility] Radiology. There will be no report generated by a [facility] Radiologist. Narrative RAD_MAMMO_BJ - 07/20/2021 10:54 AM CDT EXAMINATION: Images For Reference Purposes Only us Shona Justice MD IMG MAMMO PROCEDURES Fi nal Result RAD_MAMMO_BJ documented in this encounter Visit Diagnoses Not on filedocumented in this encounter
--- OUTSIDE RECORDS SUMMARY | 2024-10-04 08:09 | XMS_ITS | Encounter Summary ---
Author Organization [facility] Healthcare Address [address] [place] [address] Care Team Providers Care Special Forces Weapons Sergeant Name Role Phone Unavailable Primary Care Provider Unavailabl e Reason for Visit * Diagnostic Imaging (Routine) - Closed Specialty Diagnoses / Procedures Referred By Contac t Referred To Contact Procedures Breast Imaging [place] [address] [place] [address] Phone: tel: fax: Referral ID Status Reason Start Date Expiration Date Visits Re quested Visits Authorized [id number] Closed 07/20/2021 08/19/2022 1 1 Encounter Details Date Type Department Care Team (Late st Contact Info) Description 09/01/2017 Hospital Encounter [facility] [address] [place] [address] Social History Tobacco Use Types Packs/Day Years [...] on file Legal Sex Female 1:58 AM DOOR 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 Monthly or less 12/02/2022 8:56 AM CHRISTENT Leena Hunter RN Q2: How many drinks containing alcohol do you have on a typical day when you are drinking? 1 or 2 12/02/2022 8:56 AM CDT Leena Hunter RN Q3: How often do you have six or more drinks on one occasion? Never 12/02/2022 8:56 AM CDT Leena Hunter RN documented as of this encounter Plan of Treatment Not on file documented as of this encounter Procedures Procedure Name Priority Date/Time Associated Diagnosis Comments BREAST IMAGING MG SCREENING OUTSIDE REFERENCE Routine 09/01/2017 12:00 AM CDT documented in this encounter Results * Breast Imaging Screening Outside Reference (09/01/2017 12:00 AM CDT) Impressions RAD_MAMMO_[facility] - 07/20/2021 10:53 AM CDT These images are for Reference purposes only and have not been reviewed by [facility] Radiology. There will be no report generated by a [facility] Radiologist. Narrative RAD_MAMMO_[facility] - 07/20/2021 10:53 AM CDT EXAMINATION: Images For Reference Purposes Only us Shona Justice MD IMG MAMMO PROCEDURES Fi nal Result RAD_MAMMO_BJ documented in this encounter Visit Diagnoses Not on filedocumented in this encounter
--- OUTSIDE RECORDS SUMMARY | 2024-10-04 08:09 | XMS_ITS | Encounter Summary ---
Author Organization [facility] Healthcare Address [address] [place] [address] Care Team Providers Care Tabulating Machine Mechanic Name Role Phone Unavailable Primary Care Provider Unavailabl e Reason for Visit * Diagnostic Imaging (Routine) - Closed Specialty Diagnoses / Procedures Referred By Contac t Referred To Contact Procedures Breast [place] [address] [place] [address] Phone: tel: fax: Referral ID Status Reason Start Date Expiration Date Visits Re quested Visits Authorized [id number] Closed 07/20/2021 08/19/2022 1 1 Encounter Details Date Type Department Care Team (Late st Contact Info) Description 01/20/2020 Hospital Encounter [facility]iology [facility] [address] [place] [address] Social History Tobacco Use Types Packs/Day Years [...] on file Legal Sex Female 1:58 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 There will be no report generated by a [facility] Radiologist. Narrative RAD_MAMMO_[facility] - 07/20/2021 10:59 AM CDT EXAMINATION: Images For Reference Purposes Only us Shona Justice MD IMG MAMMO PROCEDURES Fi nal Result RAD_MAMMO_BJ documented in this encounter Visit Diagnoses Not on filedocumented in this encounter
--- OUTSIDE RECORDS SUMMARY | 2024-10-04 08:09 | XMS_ITS | Encounter Summary ---
Author Organization [facility] Healthcare Address [address] [place] [address] Care Team Providers Care Supervisor Screen Printing Name Role Phone Unavailable Primary Care Provider Unavailabl e Reason for Visit * Diagnostic Imaging (Routine) - Closed Specialty Diagnoses / Procedures Referred By Contac t Referred To Contact Procedures Breast Imaging [place] [address] [place] [address] Phone: tel: fax: Referral ID Status Reason Start Date Expiration Date Visits Re quested Visits Authorized [id number] Closed 07/20/2021 08/19/2022 1 1 Encounter Details Date Type Department Care Team (Late st Contact Info) Description 05/30/2016 Hospital Encounter [facility] [address] [place] [address] Social History Tobacco Use Types Packs/Day Years [...] on file Legal 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 There will be no report generated by a [facility] Radiologist. Narrative RAD_MAMMO_[facility] - 07/20/2021 10:55 AM CDT EXAMINATION: Images For Reference Purposes Only us Shona Justice MD IMG MAMMO PROCEDURES Fi nal Result RAD_MAMMO_BJ documented in this encounter Visit Diagnoses Not on filedocumented in this encounter
--- OUTSIDE RECORDS SUMMARY | 2024-10-04 08:09 | XMS_ITS | Encounter Summary ---
Author Organization [facility] Healthcare Address [address] [place] [address] Care Team Providers Care Net Software Engineer Name Role Phone Unavailable Primary Care Provider Unavailabl e Reason for Visit * Diagnostic Imaging (Routine) - Closed Specialty Diagnoses / Procedures Referred By Contac t Referred To Contact Procedures Breast Imaging [place] [address] [place] [address] Phone: tel: fax: Referral ID Status Reason Start Date Expiration Date Visits Re quested Visits Authorized [id number] Closed 07/20/2021 08/19/2022 1 1 Encounter Details Date Type Department Care Team (Late st Contact Info) Description 01/14/2020 Hospital Encounter [facility] Radiology [facility] [address] [place] [address] Social History Tobacco Use Types Packs/Day Years [...] on file Legal 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 Monthly or less 12/02/2022 8:56 AM Leena Khan RN Q2: How many drinks containing alcohol [...] Date/Time Associated Diagnosis Comments BREAST IMAGING MG DIAGNOSTIC OUTSIDE REFERENCE Routine 01/14/2020 12:00 AM FAGOT HEATER HELPER documented in this encounter Results * Breast Imaging Diagnostic Outside Reference (01/14/2020 12:00 AM FAGOT HEATER HELPER) Impressions RAD_MAMMO_[facility] - 07/20/2021 10:52 AM CDT These images are for Reference purposes only and have not been reviewed by [facility] Radiology. There will be no report generated by a [facility] Radiologist. Narrative RAD_MAMMO_[facility] - 07/20/2021 10:52 AM CDT EXAMINATION: Images For Reference Purposes Only us Shona Justice MD IMG MAMMO PROCEDURES Fi nal Result RAD_MAMMO_BJ documented in this encounter Visit Diagnoses Not on filedocumented in this encounter
--- OUTSIDE RECORDS SUMMARY | 2024-10-04 08:09 | XMS_ITS | Encounter Summary ---
Author Organization [facility] Healthcare Address [address] [place] [address] Care Team Providers Care Bundles Hanger Name Role Phone Unavailable Primary Care Provider Unavailabl e Reason for Visit * Diagnostic Imaging (Routine) - Closed Specialty Diagnoses / Procedures Referred By Contac t Referred To Contact Procedures Breast Imaging [place] [address] [place] [address] Phone: tel: fax: Referral ID Status Reason Start Date Expiration Date Visits Re quested Visits Authorized [id number] Closed 07/20/2021 08/19/2022 1 1 Encounter Details Date Type Department Care Team (Late st Contact Info) Description 12/23/2019 Hospital Encounter [facility] [address] [place] [id number] Social History Tobacco Use Types Packs/Day Years [...] on file Legal Sex 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 There will be no report generated by a [facility] Radiologist. Narrative RAD_MAMMO_[facility] - 07/20/2021 10:53 AM CDT EXAMINATION: Images For Reference Purposes Only us Shona Justice MD IMG MAMMO PROCEDURES Fi nal Result RAD_MAMMO_BJ documented in this encounter Visit Diagnoses Not on filedocumented in this encounter
--- OUTSIDE RECORDS SUMMARY | 2024-10-04 08:09 | XMS_ITS | Encounter Summary ---
Author Organization [facility] Healthcare Address [address] [place] [address] Care Team Providers Care Supervisor Heat Treating Name Role Phone Unavailable Primary Care Provider Unavailabl e Reason for Visit * Diagnostic Imaging (Routine) - Closed Specialty Diagnoses / Procedures Referred By Contac t Referred To Contact Procedures Breast Imaging [place] [address] [place] [address] Phone: tel: fax: Referral ID Status Reason Start Date Expiration Date Visits Re quested Visits Authorized [id number] Closed 07/20/2021 08/19/2022 1 1 Encounter Details Date Type Department Care Team (Late st Contact Info) Description 04/25/2016 Hospital Encounter [facility] [address] [place] [id number] Social History Tobacco Use Types Packs/Day Years [...] on file Legal Sex Female 1:58 AM COLLEGE PRESIDENT Gender Identity Not on file Sexual Orientation [...] BREAST IMAGING MG SCREENING OUTSIDE REFERENCE Routine 04/25/2016 12:00 AM COLLEGE PRESIDENT documented in this encounter Results * Breast Imaging Screening Outside Reference (04/25/2016 12:00 AM COLLEGE PRESIDENT) Impressions [facility]MO[facility] - 07/20/2021 10:54 AM CDT These images are for Reference purposes only and have not been reviewed by [facility] Radiology. There will be no report generated by a [facility] Radiologist. Narrative [facility]_MAMMO[facility] - 07/20/2021 10:54 AM CDT EXAMINATION: Images For Reference Purposes Only us Shona Justice MD IMG MAMMO PROCEDURES Fi nal Result RAD_MAMMO_[facility] documented in this encounter Visit Diagnoses Not on filedocumented in this encounter
--- OUTSIDE RECORDS SUMMARY | 2024-10-04 08:09 | XMS_ITS | Encounter Summary ---
Author Organization [facility] Healthcare Address [address] [place] [address] Care Team Providers Care Billposter Name Role Phone Unavailable Primary Care Provider Unavailabl e Reason for Visit * Diagnostic Imaging (Routine) - Closed Specialty Diagnoses / Procedures Referred By Contac t Referred To Contact Procedures Breast Imaging [place] [address] [place] [address] Phone: tel: fax: Referral ID Status Reason Start Date Expiration Date Visits Re quested Visits Authorized [id number] Closed 07/20/2021 08/19/2022 1 1 Encounter Details Date Type Department Care Team (Late st Contact Info) Description 02/17/2015 Hospital Encounter [facility] [address] [place] [address] Social History Tobacco Use Types Packs/Day Years [...] on file Legal Sex Female 1:58 AM LOSS CLAIM 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 There will be no report generated by a [facility] Radiologist. Narrative [facility]_M[facility]MO[facility] - 07/20/2021 10:52 AM CDT EXAMINATION: Images For Reference Purposes Only us Shona Justice MD IMG MAMMO PROCEDURES Fi nal Result RAD_MAMMO_[facility] documented in this encounter Visit Diagnoses Not on filedocumented in this encounter
--- OUTSIDE RECORDS SUMMARY | 2024-10-04 08:09 | XMS_ITS | Encounter Summary ---
Author Organization [facility] Healthcare Address [address] [place] [address] Care Team Providers Care Geothermal Operating Engineer Name Role Phone Unavailable Primary Care Provider Unavailabl e Reason for Visit * Diagnostic Imaging (Routine) - Closed Specialty Diagnoses / Procedures Referred By Contac t Referred To Contact Procedures Breast Imaging Diagnostic [place] [address] [place] [address] Phone: tel: fax: Referral ID Status Reason Start Date Expiration Date Visits Re quested Visits Authorized [id number] Closed 07/20/2021 08/19/2022 1 1 Encounter Details Date Type Department Care Team (Late st Contact Info) Description 05/30/2016 12:05 AM CDT Hospital Encounter [facility] [address] [place], [place] [id number] Social History Tobacco Use Types Packs/Day Years [...] on file Legal Sex Female 1:58 AM PHARMACY CARE COORDINATOR Gender Identity Not on file Sexual Orientation [...] BREAST IMAGING MG DIAGNOSTIC OUTSIDE REFERENCE Routine 05/30/2016 12:05 AM CDT documented in this encounter Results * Breast Imaging Diagnostic Outside Reference (05/30/2016 12:05 AM CDT) Impressions [facility] - 07/20/2021 10:55 AM CDT These images are for Reference purposes only and have not been reviewed by [facility] Radiology. There will be no report generated by a [facility] Radiologist. Narrative RAD_MAMMO[facility] - 07/20/2021 10:55 AM CDT EXAMINATION: Images For Reference Purposes Only us Shona Justice MD IMG MAMMO PROCEDURES Fi nal Result RAD_MAMMO_[facility] documented in this encounter Visit Diagnoses Not on filedocumented in this encounter
--- OUTSIDE RECORDS SUMMARY | 2024-10-04 08:09 | XMS_ITS | Clinical Summary ---
Author Organization [facility] Address [address] [place] [address] Care Team Providers Care Hotel Operation Manager Name Role Phone Unavailable Primary Care Provider Unavailabl e Source Comments [facility],non-owned Affiliates and Associated Physician Practices is amultiple site organization consisting of ambulatory clinics and hospital sitesin [place], [place], [place] and [place]. This disclosure is being madepursuant to the Care Everywhere program and may not contain all information available regarding this patient. Last updated 17.[facility] Allergies No known active allergies Medications * Be aware that medications may not be up to date on this document. Alwaysverify current medications with the patient. LISINOPRIL PO Active AMLODIPINE BESYLATE PO Active ALBUTEROL IN Active fluticasone propionate (FLONASE) 50 MCG/ACT nasal sprayIndications :Nasal Signs and Symptoms Lagrange 2 Sprays into each nostril once daily Reasons: Signs and Symptoms of Nose Diseases 1 Bottle 7 Active Loratadine (CLARITIN PO) Active fluticasone propionate (FLONASE) 50 MCG/ACT nasal sprayIndications :Acute sinusitis, recurrence not specified, unspecified location Lagrange 2 sprays into each nostril once daily 1 bottles 8 Active Social History Tobacco Use Types Packs/Day Years Used Date Smoking Tobacco: Never Smokeless Tobacco: Never Comments No Sex and Gender Information Value Date Recorded Sex Assigned at Not on file Legal Sex Female 6:29 AM INSTRUMENT INSPECTOR Gender Identity Not on file Sexual Orientation Not on file Last Filed Vital Signs Vital Sign Reading Time Taken Comments Blood Pressure 110/80 06/26/2017 5:08 PM CDT Pulse 92 06/26/2017 5:08 PM CDT Temperature 37.1 C (98.7 F) 06/26/2017 5:08 PM CDT Respiratory Rate 20 06/26/2017 5:08 PM CDT Oxygen Saturation 97% 06/26/2017 5:08 PM CDT Inhaled Oxygen Concentration - - Weight 113.4 kg (250 lb) 06/26/2017 5:08 PM CDT Height 180.3 cm (5' 11) 06/26/2017 5:08 PM CDT Body Mass Index 34.87 06/26/2017 5:08 PM CDT Plan of Treatment Health Maintenance Due Date Last Done Comments COLOGUARD (AGES 45-75) - COL ON CA SCREENING 1970 COLON MONITORING 1970 COLONOSCOPY - COLON CA SCREENING 1970 CT COLONOGRAPHY - COLON CA SCREENING 1970 Colorectal Cancer Screening 1970 FIT - COLON CA SCREENING 1970 FLEX SIG - COLON CA SCREENING 1970 LIPID TESTING 1970 MAMMOGRAM 1970 HIV SCREENING 1985 HEPATITIS C SCREENING 05/19/1988 DTAP/TDAP/TD VACCINES (1 - Tdap) 1989 HEPATITIS B VACCINE (1 of 3 - 19+ 3-dose series) 1989 SCREENING FOR DIABETES 04/09/2017 PNEUMOCOCCAL VACCINE 50+ (1 of 1 - PCV) 2020 ZOSTER VACCINE (1 of 2) 2020 COVID-19 VACCINE (1 - 2023-2 5 season) 2023 DEPRESSION SCREENING 03/13/2024 INFLUENZA VACCINE (#1) 2024 HIB VACCINE Aged Out No longer eligi ble based on patient's age to complete this topic HPV VACCINE Aged Out No longer eligi ble based on patient's age to complete this topic MENINGOCOCCAL (Group B) VACC INE SHARED DECISION-MAKING Aged Out No longer eligibl e based on patient's age to complete this topic MENINGOCOCCAL GROUPS A/C/Y/W VACCINE Aged Out No longer eligible b ased on patient's age to complete this topic Insurance
--- OUTSIDE RECORDS SUMMARY | 2024-10-04 08:09 | XMS_ITS | Clinical Summary ---
Author Organization [facility] Address [address], [facility] [place] [address] Phone Care Team Providers Care Surgical Resident Name Role Phone Gregorio Kirk MD Unavailable Chana Lee MD Unavailable Brook Martini MD Primary Care Provider Allergies Active Allergy Reactions Criticality Noted Date Comments Paclitaxel Anxiety,Other (see Comments),Nausea,Puja rtness of Breath High 08/20/2021 Back pain Start at half rate and titrate to full rate after 15 min if tolerated Paclitaxel (Protein-Bound) Anxiety,Other (see Comments),Nausea,Agustín h,Shortness of Breath High 08/20/2021 Back pain Start at half rate and titrate to full rate after 15 min if tolerated Medications amLODIPine (NORVASC) 5 MG Tablet Take 5 mg by mouth daily. Active oxybutynin (DITROPAN-XL) 10 MG TABLET SR 24 HR Take 10 mg by mouth nightly. 3 Active lisinopril (PRINIVIL, ZESTRIL) 40 MG Tablet Take 40 mg by mouth daily. Active loratadine (CLARITIN) 10 MG Tablet Take 10 mg by mouth daily as needed for Allergies. Active acetaminophen (TYLENOL) 500 MG Tablet Take 1,000 mg by mouth every 6 hours as needed for Mild or more severe pain. Active albuterol 108 (90 Base) MCG/ACT Aerosol Solution take 2 Puffs by inhalation. Active Loperamide HCl (Imodium A-D) 2 MG Tablet Take 2 mg by mouth 4 times daily as needed for Diarrhea. Active ondansetron (ZOFRAN) 4 MG TabletIndicatio ns:Malignant neoplasm of transverse colon (HCC) Take 1 Tablet by mouth every 6 hours as needed for Nausea - 1st line. 40 Tablet 3 4 Active Additional Information Patient not taking.Reported on 07/17/2024 prochlorperazin e (COMPAZINE) 10 MG TabletIndicatio ns:Malignant neoplasm of transverse colon (HCC) Take 1 Tablet by mouth every 4 hours as needed for Nausea - 1st line. 40 Tablet 3 4 Active Additional Information Patient not taking.Reported on 07/17/2024 lidocaine-prilo radha 2.5-2.5 % Cream Application Site: Apply nickel size amount to port site 30 minutes prior to port access. 30 g 4 Active clotrimazole-be tamethasone (LOTRISONE) 1-0.05 % CreamIndication s:Skin irritation Application Site: abdominal folds 15 g 1 4 Active Additional Information Patient not taking.Reported on 07/17/2024 ergocalciferol (VITAMIN D) 78570 UNIT Capsule Take by mouth once a week. 4 Active magnesium oxide (MAG-OX) 400 (240 Mg) MG Tablet Take 400 mg by mouth daily. 5 Active Active Problems Problem Noted Date Diagnosed Date Iron deficiency anemia 01/10/2024 Malignant neoplasm of transverse colon 4 Colon cancer 10/30/2023 Hypertension Encounters Date Type Department Care Team Description 08/21/2024 9:15 AM CDT Clinical Support [facility] [address] [phone] Nurse, Ashley Rankin Malignant neoplasm of transverse colon (HCC) (Primary Dx) 08/21/2024 Travel 07/17/2024 9:15 AM CDT Office Visit [facility] [address] [phone] Linda Jordan, SECONDARY SOCIAL STUDIES TEACHER, HOUSEKEEPER/CUSTODIAN/LAUNDRY WORKER Malignant neoplasm of transverse colon (HCC) (Primary Dx); Lung nodule; Iron deficiency anemia, unspecified iron deficiency anemia type; Hypomagnesemia; Neuropathy 07/17/2024 Travel 07/10/2024 9:00 AM CDT Lab [facility] [address] [phone] Nurse, Ashley Rankin Malignant neoplasm of transverse colon (HCC); Lung nodule; Iron deficiency anemia, unspecified iron deficiency anemia type 07/10/2024 Travel from Last 3 Months Immunizations Immunization Administration Dates Next Due Covid-19, Mrna, Lnp-s, Pf, 1 00 Mcg Or 50 Mcg Dose (MODERNA) 08/07/2021 Influenza Vaccine, Quadrivalent, PF 12/03/2022,03/01/2022,11/05/2020,2017 Influenza, recombinant, trivalent, PF 12/08/2023 Family History Medical History Relation Name Comments Diabetes Father Heart Disease Father Hypertension Father Stomach Cancer Maternal Grandfather Stroke Maternal Grandfather Diabetes Mother Heart Disease Mother Hypertension Mother Colon Cancer Paternal Grandfather Heart Disease Paternal Grandfather Alzheimer's Disease Paternal Grandmother Stroke Paternal Grandmother Relation Name Status Comments Father Maternal Grandfather Mother Paternal Grandfather Paternal Grandmother Social History Tobacco Use Types Packs/Day Years Used Date Smoking Tobacco: Never Smokeless Tobacco: Never Tobacco Cessation:Counseling Given: Not Answered Alcohol Use Standard Drinks/Week Comments Not Currently 0 (1 standard drink = 0.6 oz pur e alcohol) Comments Unknown Sex and Gender Information Value Date Recorded Sex Assigned at Not on file Legal Sex Female 1:56 PM CDT Gender Identity Not on file Sexual Orientation Not on file Last Filed Vital Signs Vital Sign Reading Time Taken Comments Blood Pressure 122/80 07/17/2024 9:15 AM CDT Pulse 84 07/17/2024 9:15 AM CDT Temperature 36.6 C (97.8 F) 07/17/2024 9:15 AM CDT Respiratory Rate 18 07/17/2024 9:15 AM CDT Oxygen Saturation 98% 07/17/2024 9:15 AM CDT Inhaled Oxygen Concentration - - Weight 157.9 kg (348 lb 1.6 oz) 07/17/2024 9:15 AM CDT Height 180.3 cm (5' 11) 07/17/2024 9:15 AM CDT Body Mass Index 48.55 07/17/2024 9:15 AM CDT Plan of Treatment Upcoming Encounters Date Type Department Care Team (Late st Contact Info) Description 10/14/2024 8:30 AM CDT Lab [facility] [address] [phone] Lab, [facility] 10/24/2024 9:15 AM CDT Office Visit [facility] [address] [phone] Gregorio Kirk MD [address] [place] [phone] Health Maintenance Due Date Last Done Comments Hepatitis C Virus (HCV) Screening 1970 TdaP Immunization 1970 Hepatitis B Immunization (1 of 3 - 19+ 3-dose series) 1989 Pneumococcal Immunization (50+ years) (1 of 2 - PCV) 1989 Zoster Immunization (1 of 2) 1989 Pap Smear 05/25/1991 Cervical Cancer Screening (CCS) 2000 HPV/Cotest 2000 Cologuard 05/25/2015 Immunochemical Fecal Occult Blood 05/25/2015 SARS-COV-2 Immunization ( season) 2023 08/07/2021, 01/04/2021, 05/30/2020, Additional history exists Mammogram 09/28/2024 09/29/2023, 09/10, 09/23/2022 Influenza Immunization (#1) 2024 0909/2023, 02/10/2023, 03/01/2022, Additional history exists Colonoscopy 10/08/2033 10/09/2023, 09/06/2023 Colorectal Cancer Screening 10/08/2033 Respiratory Syncytial Virus (RSV) Immunization (Adult) (1 - 1-dose 75+ series) 2045 Human Papillomavirus (HPV) Immunization Aged Out No longer eligible based on patient's age to complete this topic Meningococcal Immunization (ACWY) Aged Out No longer eligible based on patient's age to complete this topic Rotavirus Immunization Aged Out No lo nger eligible based on patient's age to complete this topic Procedures Procedure Name Priority Date/Time Associated Diagnosis Comments CARCINOEMBRYONIC ANTIGEN (CEA) Routine 07/10/2024 8:51 AM CDT Malignant neoplasm of transverse colon (HCC) Lung nodule Iron deficiency anemia, unspecified iron deficiency anemia type CMP (COMPREHENSIVE METABOLIC PANEL) Routine 07/10/2024 8:51 AM CDT Malignant neoplasm of transverse colon (HCC) Lung nodule Iron deficiency anemia, unspecified iron deficiency anemia type COMPLETE BLOOD COUNT (CBC) WITH DIFF Routine 07/10/2024 8:51 AM CDT Malignant neoplasm of transverse colon (HCC) Lung nodule Iron deficiency anemia, unspecified iron deficiency anemia type MAGNESIUM (MG) Routine 07/10/2024 8:51 AM CDT Malignant neoplasm of transverse colon (HCC) Lung nodule Iron deficiency anemia, unspecified iron deficiency anemia type from Last 3 Months Results * MAGNESIUM (MG) (07/10/2024 8:51 AM CDT) Magnesium 2.0 1.9 - 2.7 mg/dL [facility] Blood 07/10/2024 8:51 AM CDT Narrative CANCER MACHINE SETUP OPERATOR [facility] - 07/10/2024 9:47 AM CDT Release to patient->Immediate Linda Jordan SECONDARY SOCIAL STUDIES TEACHER, HOUSEKEEPER/CUSTODIAN/LAUNDRY WORKER CHEMISTRY ORDERABLES Final Result CANCER MACHINE SETUP OPERATOR [facility] [place] [address], [place] [phone] * CMP (COMPREHENSIVE METABOLIC PANEL) (07/10/2024 8:51 AM CDT) Glucose 92 70 - 105 mg/dL CANCER MACHINE SETUP OPERATOR [facility] Blood Urea Nitrogen 11 7 - 25 mg/dL [facility] Creatinine 0.7 0.6 - 1.2 mg/dL [facility] Sodium 141 136 - 145 mEq/L [facility] Potassium 3.9 3.5 - 5.1 mEq/L [facility] Chloride 105 98 - 107 mEq/L [facility] Bicarbonate 31 21 - 31 mEq/L [facility] Total Bilirubin 1.0 0.3 - 1.0 mg/dL [facility] Alk. Phosphatase 83 34 - 104 U/L [facility] Aspartate Aminotransferase 15 13 - 39 U/L [facility] Alanine Aminotransferase 18 7 - 52 U/L [facility] Total Protein 7.1 6.4 - 8.9 g/dL [facility] Albumin 4.1 3.5 - 5.7 g/dL [facility] Calcium 9.2 8.6 - 10.3 mg/dL [facility] Anion Gap 8.9 7.0 - 15.0 mEq/L [facility] Globulin 3.0 2.0 - 3.5 g/dL [facility] EGFR 103 >60 ml/min/1. 73m2 [facility] Comment: This eGFR is calculated using 2020 CKD-EPI Creatinine equation without race modifier based on the NKF-ASN task force recommendations Equation: cHNX=015*min(SCr/k,1)a*max(SCr/k,1)-1.200*0.9938Age*1.012 (if female), where SCr is serum creatinine, k is 0.7 for females and 0.9 for males, and a is -0.241 for females and -0.302 for males Blood 07/10/2024 8:51 AM CDT Narrative [facility] - 07/10/2024 9:47 AM CDT Release to patient->Immediate IS THE PATIENT REQUIRED TO BE FASTING FOR 8 HOURS?->No us Linda Jordan SECONDARY SOCIAL STUDIES TEACHER, HOUSEKEEPER/CUSTODIAN/LAUNDRY WORKER CHEMISTRY ORDERABLES Final Result CANCER MACHINE SETUP OPERATOR [facility] [place] [address], * (ABNORMAL) COMPLETE BLOOD COUNT (CBC) WITH DIFF (07/10/2024 8:51 AM CDT) WBC 4.2 4.0 - 10.0 10*3/uL CANCER MACHINE SETUP OPERATOR [facility] HGB 12.2 11.2 - 15.7 g/dL CANCER MACHINE SETUP OPERATOR [facility] HCT 37.9 34.1 - 44.9 % CANCER MACHINE SETUP OPERATOR [facility] PLT 196 163 - 369 10*3/uL CANCER MACHINE SETUP OPERATOR [facility] MPV 8.7(L) 9.4 - 12.4 fL CANCER MACHINE SETUP OPERATOR [facility] RBC 4.09 3.93 - 5.22 10*6/uL CANCER MACHINE SETUP OPERATOR [facility] MCV 93 79 - 95 fL [facility] MCH 29.8 25.6 - 32.2 pg CANCER MACHINE SETUP OPERATOR [facility] MCHC 32.2 32.2 - 36.5 g/dL CANCER MACHINE SETUP OPERATOR [facility] RDW 13.3 11.6 - 14.4 % CANCER MACHINE SETUP OPERATOR [facility] Absolute Neutrophil Count 1,743 cells/uL [facility] Absolute Seg Count 1,660 1,440 - 6,600 cells/uL CANCER MACHINE SETUP OPERATOR [facility] Absolute Band Count 83 0 - 800 cells/uL [facility]ER MACHINE SETUP OPERATOR [facility] Absolute Lymph Count 2,075 760 - 4,000 cells/uL [facility] Absolute Maury Count 291 160 - 1,200 cells/uL [facility]ER MACHINE SETUP OPERATOR [facility] Absolute Eos Count 42 0 - 300 cells/uL [facility]ER MACHINE SETUP OPERATOR [facility] Segmented Neutrophils 40 36 - 66 % CANCER MACHINE SETUP OPERATOR [facility] Band Neutrophils 2 0 - 8 % CAN CER MACHINE SETUP OPERATOR [facility] Lymphocytes 50(H) 19 - 40 % [facility] Monocytes 7 4 - 12 % [facility] Eosinophils 1 0 - 3 % [facility] WBC Estimate Normal CANCER MACHINE SETUP OPERATOR [facility] Platelet Estimate Normal [facility]ER MACHINE SETUP OPERATOR [facility] RBC Morphology Normal [facility] R MACHINE SETUP OPERATOR [facility] Blood 07/10/2024 8:51 AM CDT Narrative CANCER MACHINE SETUP OPERATOR [facility] - 07/10/2024 9:47 AM CDT Release to patient->Immediate us Linda Jordan SECONDARY SOCIAL STUDIES TEACHER, HOUSEKEEPER/CUSTODIAN/LAUNDRY WORKER HEMATOLOGY ORDERABLES Final Result [facility] [address] [address], * CARCINOEMBRYONIC ANTIGEN (CEA) (07/10/2024 8:51 AM CDT) CEA 1.4 0.0 - 5.0 ng/mL [facility] Comment: Yomaira Paramagnetic Particle Chemiluminescent Immunoassay Method Blood 07/10/2024 8:51 AM CDT Narrative [facility] - 07/10/2024 2:12 PM CDT Release to patient->Immediate Linda Jordan APRN, MAGALY CHEMISTRY ORDERABLES Final Result Performing Organization Address City/[facility]/ZIP Co de Phone Number [facility] [address] [place] [address], from Last 3 Months Insurance Care Teams Surgical Resident Relationship Specialty Start Date End Date Brook Martini MD [address] [place] [address] [address] [place] [address] PCP - General Family Medicine 12/13/23 Gregorio Kirk MD [address] [place] [address] Consulting Physician Oncology 11/21/23 Chana Lee MD [address] [place] [phone] Colon & Rectal Surgery 11/21/23
--- OUTSIDE RECORDS SUMMARY | 2024-10-04 08:09 | XMS_ITS ---
Author Organization [facility] Address [address], [facility] [place] [address] Phone Care Team Providers Care Rail Car Unloader Name Role Phone Gregorio Kirk MD Unavailable Chana Lee MD Unavailable Brook Martini MD Primary Care Provider Active Problems Problem Noted Date Diagnosed Date Iron deficiency anemia 01/10/2024 Malignant neoplasm of transverse colon Colon cancer 10/30/2023 Hypertension Current Treatment and Therapy Plans No current plan information found. Past Treatment and Therapy Plans ONCOLOGY SUPPORTIVE CARE Plan Name Start Date Discontinue Date Treatment Medications Discontinue Reason Plan Provider Cycles SUPPORT - HYDRATION WITHOUT ADDITIVES - CCSCI 07/31/2024 No medications scheduled. Automatically Discontinued - Inactive Plan Gregorio Kirk MD 2 of 2 cycles started ONCOLOGY TREATMENT Plan Name Start Date Discontinue Date Treatment Medications Discontinue Reason Plan Provider Cycles CCSCI: CapeOX - Colon 12/20/2023 08/21/2024 capecitabine (XELODA)oxalipl atin (ELOXATIN) chemo infusion Automatically Discontinued - Inactive Plan Gregorio Kirk MD 4 of 4 cycles started
--- OUTSIDE RECORDS SUMMARY | 2024-10-04 08:09 | XMS_ITS | Encounter Summary ---
Author Organization [facility] Healthcare Address [address] [place] [address] Care Team Providers Care Smoke Inspector Name Role Phone Unavailable Primary Care Provider Unavailabl e Reason for Visit * Diagnostic Imaging (Routine) - Closed Specialty Diagnoses / Procedures Referred By Contac t Referred To Contact Procedures Breast Imaging [place] [address] [place] [address] Phone: tel: fax: Referral ID Status Reason Start Date Expiration Date Visits Re quested Visits Authorized [id number] Closed 07/20/2021 08/19/2022 1 1 Encounter Details Date Type Department Care Team (Late st Contact Info) Description 10/22/2018 Hospital Encounter [facility] [address] [place] [id number] Social History Tobacco Use Types Packs/Day Years [...] on file Legal Sex 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 There will be no report generated by a [facility] Radiologist. Narrative [facility]_MAMMO[facility] - 07/20/2021 10:53 AM CDT EXAMINATION: Images For Reference Purposes Only us Shona Justice MD IMG MAMMO PROCEDURES Fi nal Result [facility]_MAMMO[facility] documented in this encounter Visit Diagnoses Not on filedocumented in this encounter
--- OUTSIDE RECORDS SUMMARY | 2024-10-04 08:09 | XMS_ITS | Encounter Summary ---
Author Organization [facility] Healthcare Address [address] [place] [address] Care Team Providers Care Structural Technician Name Role Phone Unavailable Primary Care Provider Unavailabl e Reason for Visit * Diagnostic Imaging (Routine) - Closed Specialty Diagnoses / Procedures Referred By Contac t Referred To Contact Procedures Breast Imaging [place] [address] [place] [address] Phone: tel: fax: Referral ID Status Reason Start Date Expiration Date Visits Re quested Visits Authorized [id number] Closed 07/20/2021 08/19/2022 1 1 Encounter Details Date Type Department Care Team (Late st Contact Info) Description 05/13/2016 Hospital Encounter [facility] [address] [place] [address] Social History Tobacco Use Types Packs/Day Years [...] on file Legal Sex Female 1:58 AM SECURITY CONTROL ASSESSOR Gender Identity Not on file Sexual Orientation Not on file documented as of this encounter Functional Status * Audit-C Score Answer Date of Assessment Author 1 12/02/2022 8:56 AM CHRISTENT Amie Hunter RN * Question Answer Date of Assessment Author Q1: How often do you have a drink containing alcohol? Monthly or less 12/02/2022 8:56 AM Leean Khan RN Q2: How many drinks containing [...] BREAST IMAGING MG DIAGNOSTIC OUTSIDE REFERENCE Routine 05/13/2016 12:00 AM SECURITY CONTROL ASSESSOR documented in this encounter Results * Breast Imaging Diagnostic Outside Reference (05/13/2016 12:00 AM SECURITY CONTROL ASSESSOR) Impressions [facility] - 07/20/2021 10:54 AM CDT These images are for Reference purposes only and have not been reviewed by [facility]. There will be no report generated by a [facility] Radiologist. Narrative [facility] - 07/20/2021 10:54 AM CDT EXAMINATION: Images For Reference Purposes Only us Shona Justice MD IMG MAMMO PROCEDURES Fi nal Result [facility]_M[facility]MO[facility] documented in this encounter Visit Diagnoses Not on filedocumented in this encounter
--- OUTSIDE RECORDS SUMMARY | 2024-10-04 08:09 | XMS_ITS ---
Author Organization [facility] Address [address] [place] [address] Care Team Providers Care Typing Secretary Name Role Phone Bisi Looney MD Unavailable [phone] Shona Justice MD Unavailable [phone] Janak Holland MD Unavailable [phone] Airam Boykin NP Primary Care Provider [phone] Anamika Pepe MD Unavailable [phone] Gregorio Kirk MD Unavailable Active Problems Problem Noted Date Diagnosed Date Malignant neoplasm of left female breast 023 Personal history of radiation therapy 08/16/2022 Persons encountering health services in other specified circumstances 08/10/2021 Malignant neoplasm of lower- inner quadrant of left breast in female, estrogen receptor negative 07/29/2021 Cancer Staging:Clinical:Stage IIIB(cT3, cN0, cM0, G3, ER-, CO-, HER2-) - Unsigned Current Treatment and Therapy Plans IV MAINTENANCE THERAPY PLAN* Plan Start Date:08/20/2021 Plan Provider:Presley Knight MD Linked Problems Malignant neoplasm of lower- inner quadrant of left breast in female, estrogen receptor negative (HCC) Treatment Medications No medications scheduled. Past Treatment and Therapy Plans Oncology Chemotherapy Treatment Plan Name Start Date Discontinue Date Treatment Medications Discontinue Reason Plan Provider Cycles Pembrolizumab / PACLItaxel / CARBOplatin x 4 cycles followed by Pembrolizuamb / DOXOrubicin (ADRIAMYCIN) / Cyclophosphomide x 4 cycles followed by Pembrolizumab Monotherapy 21 Day Cycles - Breast 022 09/13/2023 CARBOplatin (PARAPLATIN) IVPB in 250 mLcycloPHOSphamide (CYTOXAN)cycloPHOSp hamide IVPB in 250 mL (vial 200 mg/mL)(J9073)DOXOru bicin (ADRIAMYCIN)DOXOrub icin (ADRIAMYCIN) 2 mg/mLPACLItaxel (TAXOL) IVPB in 500 mLpembrolizumab (KEYTRUDA)pembroliz umab (KEYTRUDA) IVPB in 100 mL Therapy Complete Bisi Looney MD 17 of 17 cycles completed Radiation Treatments * Course [id number]/14/2022 - 07/18/2022 Treatment Period Energy Fraction Dose Fractions Total Dose Plans Planned LT BRST TANGS 06/14/2022 - 07/18/2022 267 15 / 4,005 LT BRST BOOST 06/29/2022 - 07/06/2022 250 5 / 1,250 Reference Points Delivered DPV_LT BREAST 06/14/2022 - 07/18/2022 4,005 dpv_lt brst bst 06/29/2022 - 07/06/2022 1,250 Lifetime Dose Tracking * Chemical Lifetime Dose Automatic Entry Manual Entr y doxorubicin 359.368 mg/m2 (1,018.8 mg) 359.368 mg/m2 (1,018.8 mg) 0 mg/m2 (0 mg) Fluoro Time 0.033 minutes 0.033 minutes 0 minutes cyclophosphamide 2,396.496 mg/m2 (6,800 mg) 2,396.496 mg/m2 (6,800 mg) 0 mg/m2 (0 mg) doxorubicin isotoxic equivalent (Please manually verify calculation) 359.368 mg/m2 (1,018.8 mg) 359.368 mg/m2 (1,018.8 mg) 0 mg/m2 (0 mg) Air kerma at the reference point (Ka,r) 0.27 mGy 0.27 mGy 0 mGy DLP 3,292 mGycm 3,292 mGycm 0 mGycm
--- OUTSIDE RECORDS SUMMARY | 2024-10-04 08:09 | XMS_ITS | Referral Summary ---
Author Organization [facility] Address [address] [place] [address] Care Team Providers Care Head Charger Name Role Phone Bisi Looney MD Unavailable [phone] Shona Justice MD Unavailable [phone] Janak Holland MD Unavailable [phone] Airam Boykin NP Primary Care Provider [phone] Anamika Pepe MD Unavailable [phone] Gregorio Kirk MD Unavailable Allergies Active Allergy [...] Cancer Staging:Clinical:Stage IIIB(cT3, cN0, cM0, G3, ER-, MT-, HER2-) - Unsigned Immunizations Immunization Administration Dates Next Due Moderna SARS-CoV-2 Monovalen t Vaccination (12+ YRS) 08/07/2021,01/04/2021,05/30/2020,2020 Social History Tobacco Use Types Packs/Day Years [...] on file Legal 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 Gender Identity Not on file Sexual Orientation Not on file Last Filed Vital Signs Vital Sign Reading Time Taken Comments Blood Pressure 149/85 04/03/2024 9:38 AM CLERICAL SUPERVISOR Pulse 88 04/03/2024 9:38 AM CLERICAL SUPERVISOR Temperature 36.3 C (97.4 F) 03/17/2023 12:18 PM CLERICAL SUPERVISOR Respiratory Rate 18 03/17/2023 12:18 PM CLERICAL SUPERVISOR Oxygen Saturation 100% 04/03/2024 9:38 AM CLERICAL SUPERVISOR Inhaled Oxygen Concentration - - Weight 155.6 kg (343 lb) 04/03/2024 9:38 AM CLERICAL SUPERVISOR Height 180.3 cm (5' 10.98) 09/29/2023 9:42 AM C DT Body Mass Index 47.86 09/29/2023 9:42 AM CDT Plan of Treatment Not on file Medical Devices Implanted Type Area Form Setter Device Identifier Shelf Expiration Date Model / Serial / Lot Other - See Comments Implanted:Qty: 1 Other - see comments N/A: Heart Description:ACD repair- ioana ent carries card with her- surgery 05/2007 [employer] Magseed 18ga 7cm Marker Breast Biopsy [id number] - [id number] Implanted:Qty: 1 on 03/28/2022 at [facility] Left: Breast [employer] [id number] 01/10/2026 [id number] [employer] Ligaclip Extra 3.2mm Ligate Open Medium Clip Internal Titanium Latex Free Lt200 - [id number] Implanted:Qty: 1 on 03/28/2022 by Shona Justice MD at [facility] [employer] [id number] 11/10/2026 [id number] / / [id number] [employer] Ligaclip Extra 3.2mm Ligate Open Medium Clip Internal Titanium Latex Free Lt200 - [id number] Implanted:Qty: 1 on 03/28/2022 by Shona Justice MD at [facility] [employer] [id number] 11/10/2026 LT200 / / [id number] [employer] Eviva 13cm Identifier Biopsy Site Kovzv-Mzoyy-64 - [id number] Implanted:Qty: 1 on 10/13/2022 at [facility] [employer] [id number] 03/01/2023 [facility] / [id number] Explanted Type Area Form Setter Device Identifier Shelf Expiration Date Model / Serial / Lot [employer] Peripheral Vascular Powerport Clearvue Airguard 8fr 1 Lumen Lightweight Intermediate Latex Free [id number] - [id number] Implanted:Qty: 1 on 08/12/2021 by Shona Justice MD at [facility] Explanted:Qty: 1 on 12/12/2022 by Shona Justice MD at [facility] Right: Chest [employer] [id number] 06/10/2022 [id number] / / [id number] Description:Disposed of per hospital policy Procedures Procedure [...] Most Recently Relevant to Health Maintenance Insurance [facility] Address: [place] [address] CHOICE PLUS [facility] H[facility]/PPO Address: [address] [address] [facility] CHOICE PLUS [facility] H[facility]/PPO Address: [facility] [address] [place] [address] Care Teams Head Charger Relationship Specialty Start Date End Date Airam Boykin NP [address] [place] [address] PCP - General Nurse Practitioner 03/17/23 Bisi Looney MD [address] [facility] [address] [place] [address] Medical Oncologist/Site Identification Specialist Medical Oncology 10/22/21 Shona Justice MD [address] [place] [address] Surgeon Surgical Oncology 06/01/22 Janak Holland MD [address] [place] [address] [address] [place] [address] Referring Physician Obstetrics and Gynecology 03/17/23 Anamika Pepe MD [address] [place] [address] Radiation Oncologist Radiation Oncology 11/08/23 Gregorio Kirk MD [address] [place] [address] [address] [facility] [address] [place] [address] Medical Oncologist Hematology 03/07/24
--- OUTSIDE RECORDS SUMMARY | 2024-10-04 08:09 | XMS_ITS | Encounter Summary ---
Author Organization [facility] Healthcare Address [address] [place] [address] Care Team Providers Care Systems Architecture Analyst Name Role Phone Unavailable Primary Care Provider Unavailabl e Reason for Visit * Diagnostic Imaging (Routine) - Closed Specialty Diagnoses / Procedures Referred By Contac t Referred To Contact Procedures Breast Imaging [place] [address] [place] [address] Phone: tel: fax: Referral ID Status Reason Start Date Expiration Date Visits Re quested Visits Authorized [id number] Closed 07/20/2021 08/19/2022 1 1 Encounter Details Date Type Department Care Team (Late st Contact Info) Description 02/13/2017 Hospital Encounter [facility] [address] [place] [address] Social History Tobacco Use Types Packs/Day Years [...] on file Legal 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 There will be no report generated by a [facility] Radiologist. Narrative RAD_MAMMO[facility] - 07/20/2021 10:55 AM CDT EXAMINATION: Images For Reference Purposes Only us Shona Justice MD IMG MAMMO PROCEDURES Fi nal Result RAD_MAMMO[facility] documented in this encounter Visit Diagnoses Not on filedocumented in this encounter
[2024-10-04 13:44] LABS: Alanine Aminotransferase 19 U/L (6-35); Albumin Level 4.1 g/dL (3.5-5.1); Alkaline Phosphatase 69 U/L (38-126); Anion Gap 7 mmol/L (4-12); Aspartate Amino Transferase 53 U/L (14-36); Bilirubin,Total 1.2 mg/dL (0.2-1.3); Blood Urea Nitrogen 15 mg/dL (7-17); Calcium 9.1 mg/dL (8.4-10.2); Carbon Dioxide 30 mmol/L (22-30); Chloride 103 mmol/L (98-107); Cholesterol 138 mg/dL (0-200); Estimated Glomerular Filt Rate 59; Glucose 73 mg/dL (65-110); HDL Direct 34 mg/dL; Magnesium 2.1 mg/dL (1.6-2.3); Potassium 4.3 mmol/L (3.4-5.0); Sodium 140 mmol/L (137-145); Total Protein 8.0 g/dL (6.3-8.2); Triglycerides 74 mg/dL (<150)
[2024-10-04 14:40] LABS: Vitamin B12 283.0 pg/mL (239-931)
[2024-10-04 15:00] LABS: Hemoglobin A1C 5.9 % (<5.7)
[2024-10-04 15:59] LABS: Thyroid Stimulating Hormone Reflex 2.760 uIU/mL (0.465-4.68)
== END 2024-10-04 08:07 | disposition home or self-care (01) ==
LOC: ANHGOSHLAB 08:06
PROVIDERS: PCP Family Medicine; Visit Provider Nurse Practitioner Family
DX: M79.2 Neuralgia and neuritis, unspecified (principal); I10 Essential (primary) hypertension; R73.03 Prediabetes; E55.9 Vitamin D deficiency, unspecified
CPT/HCPCS: 36415; 80053; 80061; 82306; 82607; 83036; 83735; 84443

== ENCOUNTER 2025-02-21 08:19 | Outpatient (CLI) | payer OTHER, SELFPAY ==
[2025-02-21 18:12] LABS: Hematocrit 41.7 % (37.0-47.0); Hemoglobin 12.8 g/dL (12.0-15.0); Immature Granulocyte Percent A 0.1 % (0-0.5); Lymphocytes Absolute Auto 2.04 K/mm3 (0.9-3.2); Mean Corpuscular HGB Conc 30.7 g/dl (32-36); Mean Corpuscular Hemoglobin 28.1 pg (26-34); Mean Corpuscular Volume 91.4 fl (80-100); Nucleated Red Blood Cells Absolute Auto 0.000 K/mm3 (0.0-0.012); Nucleated Red Blood Cells Perc 0.0 % (0.0-0.2); Platelet Count Result 285 k/mm3 (150-375); Red Blood Count 4.56 M/mm3 (4.2-5.4); White Blood Count 6.9 K/mm3 (4.5-10.0)
[2025-02-21 18:44] LABS: Alanine Aminotransferase 21 U/L (6-35); Albumin Level 4.3 g/dL (3.5-5.1); Alkaline Phosphatase 82 U/L (38-126); Anion Gap 4 mmol/L (4-12); Aspartate Amino Transferase 28 U/L (14-36); Bilirubin,Total 1.1 mg/dL (0.2-1.3); Blood Urea Nitrogen 11 mg/dL (7-17); Calcium 9.2 mg/dL (8.4-10.2); Carbon Dioxide 32 mmol/L (22-30); Chloride 102 mmol/L (98-107); Cholesterol 142 mg/dL (0-200); Estimated Glomerular Filt Rate > 60; Glucose 75 mg/dL (65-110); HDL Direct 43 mg/dL; Magnesium 2.3 mg/dL (1.6-2.3); Potassium 4.1 mmol/L (3.4-5.0); Sodium 138 mmol/L (137-145); Total Protein 8.1 g/dL (6.3-8.2); Triglycerides 82 mg/dL (<150)
[2025-02-21 19:24] LABS: Hemoglobin A1C 5.8 % (<5.7)
[2025-02-21 19:38] LABS: Vitamin B12 426.0 pg/mL (239-931)
[2025-02-21 20:02] LABS: Thyroid Stimulating Hormone Reflex 2.350 uIU/mL (0.465-4.68)
== END 2025-02-21 08:20 | disposition home or self-care (01) ==
LOC: ANHGOSHLAB 08:19
PROVIDERS: PCP Family Medicine; Visit Provider Nurse Practitioner Family
DX: R73.03 Prediabetes (principal); I10 Essential (primary) hypertension; E55.9 Vitamin D deficiency, unspecified
CPT/HCPCS: 36415; 80053; 80061; 82306; 82607; 83036; 83735; 84443; 85025